=== PATIENT | male | born 1940 | race Caucasian/White ===

== ENCOUNTER 2021-12-13 07:54 | Day surgery (SDC) | payer MEDICARE ==
[2021-12-12 10:12] VITALS: BMI 29.5
[2021-12-13] MEDS ORDERED: Oxymetazoline HCl 0.05% (30 ML BOT) ONE ×2 (08:19→09:17)
[2021-12-13 08:46] LABS: Hemoglobin 14.1 g/dL (14.0-18.0); Platelet Count 102 thou/uL (130-400)
[2021-12-13] MEDS ORDERED: EPINEPHrine 1 MG/ML AMP ONE (09:17)
[2021-12-13] MEDS ORDERED: Lidocaine 1% (PF) 30 ML VIAL ONE (09:17)
[2021-12-13] MEDS ORDERED: fentaNYL Citrate/PF 100 MCG/2 ML SYRINGE ONE ×2 (09:18→09:55)
[2021-12-13 09:19] LABS: Chloride 107 mmol/L (98-107); Potassium 4.1 mmol/L (3.5-5.1); Sodium 139 mmol/L (136-145)
[2021-12-13 09:20] LABS: Calcium 9.6 mg/dL (7.8-10.44); Glucose 109 mg/dL (83-110)
[2021-12-13 09:22] LABS: Anion Gap 15 mmol/L (10-20); Carbon Dioxide 21 mmol/L (23-31)
[2021-12-13 09:23] LABS: Calc. Creatinine Clearance 58 mL/min (70-130); Estimated GFR 55
[2021-12-13 09:24] LABS: BUN (Urea Nitrogen) 23 mg/dL (8.4-25.7)
[2021-12-13] MEDS ORDERED: Dexamethasone 20 MG/5 ML VIAL ONE (09:58)
[2021-12-13] MEDS ORDERED: Ondansetron PF 4 MG/2 ML Vial ONE (09:58)
[2021-12-13] MEDS ORDERED: NEOSTIGMINE 3 MG/3 ML SYR 3 MG/3 ML SYRINGE ONE (09:58)
[2021-12-13] MEDS ORDERED: PROPOFOL 200 MG/20 ML VIAL ONE (09:58)
[2021-12-13] MEDS ORDERED: Rocuronium Bromide 10 MG/ML (10ML VIAL) ONE (09:58)
[2021-12-13] MEDS ORDERED: Lidocaine 1% MPF 2 ML VIAL ONE (09:58)
[2021-12-13] MEDS ORDERED: Glycopyrrolate 0.2 MG/ML 5 ML SYRINGE ONE (09:58)
[2021-12-13] MEDS ORDERED: SUGAMMADEX SODIUM 200 MG/2 ML VIAL ONE (10:32)
[2021-12-13] MEDS ORDERED: Fentanyl 100 MCG/2 ML VIAL ONE (10:41)
[2021-12-13] MEDS ORDERED: Acetaminophen 500 MG TAB ONE (13:20)
== END 2021-12-13 14:20 | disposition home or self-care (01) ==
LOC: SDC 07:54
PROVIDERS: ATTEND Otolaryngology Plastic Surgery within the Head & Neck
PROC: 09TV8ZZ Resection of Left Ethmoid Sinus, Via Natural or Artificial Opening Endoscopic (ICD-10-PCS; principal; 2021-12-13)
PROC: 099T8ZZ Drainage of Left Frontal Sinus, Via Natural or Artificial Opening Endoscopic (ICD-10-PCS; 2021-12-13)
PROC: 099R8ZZ Drainage of Left Maxillary Sinus, Via Natural or Artificial Opening Endoscopic (ICD-10-PCS; 2021-12-13)
PROC: 09TL8ZZ Resection of Nasal Turbinate, Via Natural or Artificial Opening Endoscopic (ICD-10-PCS; 2021-12-13)
DX: J33.8 Other polyp of sinus (principal); J32.9 Chronic sinusitis, unspecified; J34.3 Hypertrophy of nasal turbinates; J34.89 Other specified disorders of nose and nasal sinuses; J30.9 Allergic rhinitis, unspecified; E78.00 Pure hypercholesterolemia, unspecified; I10 Essential (primary) hypertension; Z79.82 Long term (current) use of aspirin; Z79.84 Long term (current) use of oral hypoglycemic drugs; Z79.899 Other long term (current) drug therapy; Z95.1 Presence of aortocoronary bypass graft
CPT/HCPCS: 80048; 85014; 85018; 85049; 88304; 93005; 93010; J0171; J1100; J2001; J2405; J2704; J3010